=== PATIENT | male | born 1995 | race Two or more races ===

== ENCOUNTER 2022-02-02 15:25 | Emergency (ER) | payer SELFPAY ==
--- NOTE | 2022-02-02 15:57 | EXP.UTC ---
Discharge Plan Disposition Patient Disposition: Home, Self-Care Condition: Fair Prescriptions Prescriptions: New cephalexin 500 mg capsule 500 mg PO Q6H 7 Days Qty: 28 0RF ibuprofen 600 mg tablet 600 mg PO Q8H PRN (Reason: pain) Qty: 30 0RF Referrals Follow up/Referrals: Provider,Referral, [Primary Care Provider] - See instructions Activity Restrictions/Add. Instructions Additional Instructions/Restrictions: You have been evaluated for injury to the scrotum. Lacerations have been repaired. Please take antibiotic, Keflex, as prescribed. Okay to take Tylenol and Motrin. Wear close fitting underwear for scrotal support. Follow-up with a urologist as soon as available. Follow-up with a primary care doctor in 1 to 2 days for symptom recheck. Return to the emergency department at once for any new or worsening symptoms, pain, fever, wound drainage, other concerns. [facility]?Urology. [address] [place] [address].?[place] [phone]. . 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 the stick cut him on his scrotum. He denies any other injury. Related Data Previous Rx's Medication Instructions Recorded cephalexin 500 mg capsule 500 mg PO Q6H 7 days #28 caps 02/02/22 ibuprofen 600 mg tablet 600 mg PO Q8H PRN pain #30 tabs 02/02/22 Allergies Allergy/AdvReac Type Severity Reaction Status Date / Time No Known Allergies Allergy Verified 02/02/22 16:33 PFSH PFS Social History Smoking Status: Never smoker alcohol intake: never current occupational status: employed Travel in the last 8 weeks: None ROS Obtained: Yes All systems reviewed & no additional complaints except as documented Constitutional Constitutional: Denies chills and Denies fever(s) Eyes Eyes: Denies eye discharge ENT Ears, Nose, Mouth, and Throat: Denies dizziness, Denies otalgia and Denies sore throat Cardiovascular Cardiovascular: Denies chest pain Respiratory Respiratory: Denies shortness of breath, Denies chest congestion, Denies cough, Denies stridor and Denies wheezing Gastrointestinal Gastrointestingal: Denies nausea or vomiting Genitourinary Male Genitourinary: Reports as per HPI Musculoskeletal Musculoskeletal: Reports system reviewed and no additional complaints, except as documented and Denies arthralgias Integumentary/Breasts Skin/Breast: Reports as per HPI Neurologic Neurologic: Denies dizziness and Denies paresthesias Allergic/Immunologic Allergic/Immunologic: Denies wheezing Physical Exam General General appearance: alert and in no apparent distress Head Head exam: atraumatic, normocephalic and normal inspection Eye Eye exam: Present normal appearance, PERRL and EOMI ENT ENT exam: Present normal exam, normal oropharynx, mucous membranes moist, TM's normal bilaterally and normal external ear exam Neck Neck exam: Present normal inspection, full ROM and trachea midline; Absent meningismus or lymphadenopathy Chest Chest inspection: Present normal inspection and symmetric chest wall rise; Absent tenderness Respiratory Respiratory exam: Present normal lung sounds bilaterally; Absent respiratory distress Cardiovascular Cardiovascular exam: Present regular rate and normal rhythm; Absent JVD Abdominal Exam Abdominal exam: Present soft and normal bowel sounds; Absent distention, tenderness or guarding Extremities Exam Extremities exam: Present normal inspection, full ROM and normal capillary refill; Absent calf tenderness Bandar
--- NOTE | 2022-02-02 16:06 | HMH.EDGENADL ---
Discharge Plan Disposition Patient Disposition: Home, Self-Care Condition: Fair Prescriptions Prescriptions: New cephalexin 500 mg capsule 500 mg PO Q6H 7 Days Qty: 28 0RF ibuprofen 600 mg tablet 600 mg PO Q8H PRN (Reason: pain) Qty: 30 0RF Referrals Follow up/Referrals: Provider,Referral, [Primary Care Provider] - See instructions Activity Restrictions/Add. Instructions Additional Instructions/Restrictions: You have been evaluated for injury to the scrotum. Lacerations have been repaired. Please take antibiotic, Keflex, as prescribed. Okay to take Tylenol and Motrin. Wear close fitting underwear for scrotal support. Follow-up with a urologist as soon as available. Follow-up with a primary care doctor in 1 to 2 days for symptom recheck. Return to the emergency department at once for any new or worsening symptoms, pain, fever, wound drainage, other concerns. [facility]?Urology. [address] [place] [address].?[place] [phone]. . Clinical Impressions Clinical Impression: Scrotal trauma Instructions Patient Instructions: DI for Laceration Repair-Skin Glue Discharge ED Provider: Mica Issa General Adult HPI General Chief complaint: Urogenital-Male Stated complaint: AO 02/02 @1430 INJURED RIGHT LEG Time Seen by Provider: 02/02/22 15:57 History of Present Illness HPI narrative: 26-year-old male presenting to the emergency department after scrotal injury. Incident happened just prior to arrival. 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 He says it went through and through. He had immediate pain. Pain was sharp and intense. Was able to remove the stick. Now pain is dull and throbbing. No bleeding at this time. He is otherwise healthy. Unsure of his most recent tetanus immunization. He is staying in [place] to work. 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 Related Data Previous Rx's Medication Instructions Recorded cephalexin 500 mg capsule 500 mg PO Q6H 7 days #28 caps 02/02/22 ibuprofen 600 mg tablet 600 mg PO Q8H PRN pain #30 tabs 02/02/22 Allergies Allergy/AdvReac Type Severity Reaction Status Date / Time No Known Allergies Allergy Verified 02/02/22 16:33 PFSH PFSH Social History Smoking Status: Never smoker alcohol intake: never current occupational status: employed Travel in the last 8 weeks: None ROS Obtained: Yes All systems reviewed & no additional complaints except as documented Cardiovascular Cardiovascular: Denies dyspnea and Denies palpitations Respiratory Respiratory: Denies cough and Denies dyspnea Gastrointestinal Gastrointestingal: Denies nausea or vomiting Genitourinary Male Genitourinary: Reports scrotal swelling, Reports testicular pain (right side) and Denies urinary hesitancy Musculoskeletal Musculoskeletal: Denies muscle cramps, Denies myalgias, Denies numbness and Denies tingling Integumentary/Breasts Skin/Breast: Reports skin swelling and Reports wounds Neurologic Neurologic: Denies numbness and Denies tingling Endocrine Endocrine: Denies palpitations Physical Exam General General appearance: alert and in no apparent distress Head Head exam: atraumatic and normocephalic ENT ENT exam: Present normal exam and mucous membranes moist Respiratory Respiratory exam: Present normal lung sounds bilaterally; Absent respiratory distress or wheezes Cardiovascular Cardiovascular exam: Present regular rate and normal rhythm Abdominal Exam Abdominal exam: Present soft; Absent distention or tenderness exam: Present normal inspection, testicular tenderness (right lateral hemiscrotum), scrotal swelling and normal testicular lie Neurological Exam Neurological exam: Present alert and oriented X3 Psychiatric Psychiatric exam: Present normal affect and normal mood Skin Skin exam: Present warm, dry and other (Abrasion to the inferior margin of t
[2022-02-02 16:09] VITALS: BP 134/82; PULSE 59; RESP 20; TEMP 36.7; O2SAT 100; BMI 32.2
--- NOTE | 2022-02-02 16:12 | US_ITS ---
PROCEDURE INFORMATION: Exam: US Scrotum Exam date and time: 02/02/2022 4:26 PM Age: 26 years old Clinical indication: Injury or trauma; Other: Fell on tobacco stick; Laceration; Scrotal; With foreign body; Additional info: Trauma, RO torsion TECHNIQUE: Imaging protocol: Real-time ultrasound of the scrotum and contents with color Doppler and image documentation. COMPARISON: No relevant prior studies available. FINDINGS: Right testicle: Normal. No mass. No torsion. Normal vascular flow. Left testicle: Normal. No mass. No torsion. Normal vascular flow. Epididymides: Normal. Scrotum: Right-sided scrotal edema with thin area of fluid at the site of injury. No hydrocele or varicocele. IMPRESSION: Thin fluid collection at the site of injury within the right scrotum.
[2022-02-02 16:18] VITALS: BP 122/94; PULSE 78; RESP 16; O2SAT 100
--- NOTE | 2022-02-02 16:18 | PC.NURSE ---
pt has 2 open areas noted to R side of scrotum. No active bleeding noted
--- NOTE | 2022-02-02 16:25 | PC.NURSE ---
pt to ultrasound
--- NOTE | 2022-02-02 16:48 | PC.NURSE ---
JULIANO SAGASTUME speaking with ultrasound staff for report at this time,
--- NOTE | 2022-02-02 17:27 | PC.NURSE ---
R testicle area cleaned with hibiclens sponge at this time
[2022-02-02 18:22] VITALS: BP 125/84; PULSE 62; RESP 18; TEMP 36.7; O2SAT 97
== END 2022-02-02 18:22 | disposition home or self-care (01) ==
LOC: UTC 15:42 → ER 16:01
PROVIDERS: Emergency Provider Emergency Medicine
DX: S39.94XA Unspecified injury of external genitals, initial encounter (principal); W11.XXXA Fall on and from ladder, initial encounter; Y92.71 Barn as the place of occurrence of the external cause; Y99.0 Civilian activity done for income or pay; Z23 Encounter for immunization
CPT/HCPCS: 76870; 90471; 90715; 99284